=== PATIENT | female | born 1965 | race Caucasian/White ===

== ENCOUNTER → 2022-01-19 | Outpatient (REF) | payer OTHER ==
[2022-01-19 14:50] LABS: APPEARANCE, URINE MANUAL CLEAR (CLEAR); COLOR, URINE MANUAL YELLOW (YELLOW)
[2022-01-19 14:51] LABS: BILIRUBIN, URINE MANUAL NEGATIVE (NEGATIVE); BLOOD URINE MANUAL TRACE (NEGATIVE); GLUCOSE, URINE (UA) MANUAL 4+(1000 MG/DL) mg/dL (NEGATIVE); KETONE, URINE MANUAL NEGATIVE (NEGATIVE); LEUKOCYTE ESTERASE, URINE MAN TRACE (NEGATIVE); NITRITE, URINE MANUAL NEGATIVE (NEGATIVE); PROTEIN, URINE MANUAL 2+ mg/dL (NEGATIVE); SPECIFIC GRAVITY,URINE MANUAL 1.025 (1.002-1.035); UROBILINOGEN, URINE MANUAL NORMAL (NORMAL)
[2022-01-19 15:03] LABS: AMORPHOUS SEDIMENT, URINE SMALL AMOUNT (NEGATIVE); BACTERIA, URINE NONE SEEN; MUCUS, URINE LARGE AMOUNT (NEGATIVE); SQUAMOUS EPITHELIAL CELL URINE LARGE AMOUNT /hpf (SMALL AMT)
== END ==
LOC: M SMT 13:20
PROVIDERS: ATTEND Physician Assistant
DX: R30.0 Dysuria (principal)

== ENCOUNTER → 2022-03-08 | Outpatient (CLI) | payer OTHER | LOC: M RAD 09:01 | PROVIDERS: ATTEND Internal Medicine Nephrology | DX: E11.22 Type 2 diabetes mellitus with diabetic chronic kidney disease (principal); N18.2 Chronic kidney disease, stage 2 (mild) ==

== ENCOUNTER → 2022-03-12 | Outpatient (REF) | payer OTHER ==
[2022-03-12 18:18] LABS: CREATININE, URINE 100.4 MG/DL; MAU/CREAT RATIO 100.5 MCG/MG (0.0-30.0)
== END ==
LOC: M LAB REF 17:16
PROVIDERS: ATTEND Internal Medicine Nephrology
DX: N25.81 Secondary hyperparathyroidism of renal origin (principal)

== ENCOUNTER → 2022-09-08 | Outpatient (REF) | payer OTHER ==
[2022-09-08 18:41] LABS: TOTAL PROTEIN,RANDOM URINE 56.5 MG/DL (0.0-14.0)
[2022-09-08 18:46] LABS: CREATININE,RANDOM URINE 108.4 MG/DL
== END ==
LOC: M LAB REF 17:05
PROVIDERS: ATTEND Internal Medicine Nephrology
DX: E11.22 Type 2 diabetes mellitus with diabetic chronic kidney disease (principal)

== ENCOUNTER → 2022-11-09 | Outpatient (REF) | payer OTHER ==
[2022-11-09 17:17] LABS: ALBUMIN 3.3 G/DL (3.2-5.2); BILIRUBIN,DIRECT 0.2 MG/DL (<0.4); BILIRUBIN,TOTAL 0.6 MG/DL (0.3-1.2); CALCIUM LEVEL 9.6 MG/DL (8.5-10.1); CREATININE FOR GFR 1.25 MG/DL (0.55-1.30); GLOMERULAR FILTRATION RATE 47.4 (>51); POTASSIUM SERUM 4.4 MMOL/L (3.5-5.1); TOTAL PROTEIN 7.2 G/DL (5.7-8.2)
== END ==
LOC: M SFHCRHEU 14:50
PROVIDERS: ATTEND Internal Medicine
DX: R79.82 Elevated C-reactive protein (CRP) (principal); R70.0 Elevated erythrocyte sedimentation rate; E79.0 Hyperuricemia without signs of inflammatory arthritis and tophaceous disease; M25.50 Pain in unspecified joint

== ENCOUNTER → 2023-08-22 | Outpatient (CLI) | payer OTHER | LOC: M SLEEP 20:00 | PROVIDERS: ATTEND Nurse Practitioner Adult Health | DX: G47.33 Obstructive sleep apnea (adult) (pediatric) (principal) ==

== ENCOUNTER → 2024-03-01 | Outpatient (REF) | payer OTHER ==
[2024-03-01 18:05] LABS: CREATININE,RANDOM URINE 34.5 MG/DL
[2024-03-01 18:14] LABS: TOTAL PROTEIN,RANDOM URINE 160.1 MG/DL (0.0-14.0)
== END ==
LOC: M LAB REF 17:05
PROVIDERS: ATTEND Internal Medicine Nephrology
DX: E11.22 Type 2 diabetes mellitus with diabetic chronic kidney disease (principal)

== ENCOUNTER → 2024-03-27 | Outpatient (CLI) | payer OTHER | LOC: M PLAIMG 10:36 | PROVIDERS: ATTEND Internal Medicine Nephrology | DX: R31.1 Benign essential microscopic hematuria (principal); N18.32 Chronic kidney disease, stage 3b ==

== ENCOUNTER → 2024-09-03 | Outpatient (REF) | payer OTHER ==
[2024-09-03 18:01] LABS: BACTERIA, URINE AUTO 3+ (NEGATIVE); MUCUS, URINE SMALL (NEGATIVE); RBC, URINE AUTO 5 /HPF (0-3); SQUAMOUS EPITHELIAL CELL UR AU 3 /HPF (0-6); WBC, URINE AUTO TNTC /HPF (0-3)
== END ==
LOC: M LAB REF 17:00
PROVIDERS: ATTEND Internal Medicine Nephrology
DX: N30.01 Acute cystitis with hematuria (principal)

== ENCOUNTER 2024-09-28 14:59 | Outpatient (CLI) | payer OTHER ==
[2024-09-28 15:25] VITALS: BP 138/90; O2SAT 96
[2024-09-28] MEDS: ERTAPENEM SODIUM 1 GM in NS MINI-BAG PLUS 50 ML IV ONE (15:36)
[2024-09-28 15:53] LABS: BASO # 0.1 10^3/uL (0.0-0.2); BASO % 0.5 % (0.0-1.0); EOS # 0.4 10^3/uL (0.0-0.5); EOS % 3.4 % (0.0-3.0); LYMPH # 2.5 10^3/uL (1.5-5.0); LYMPH % 21.6 % (24.0-44.0); MONO # 0.6 10^3/uL (0.0-0.8); MONO % 5.2 % (2.0-8.0); NEUTROPHILS # 8.0 10^3/uL (1.5-8.5); NEUTROPHILS % 69.0 % (36.0-66.0); PLATELET COUNT, AUTOMATED 211 10^3/uL (150-450)
[2024-09-28 16:26] LABS: ALT/SGPT 27.0 U/L (7.0-40); AST/SGOT 37.0 U/L (<34); C REACTIVE PROTEIN QUANTITATIV 0.83 MG/DL (<1.0); CALCIUM LEVEL 10.1 MG/DL (8.5-10.1); CARBON DIOXIDE LEVEL 32.0 MMOL/L (20-31); CHLORIDE LEVEL 101.0 MMOL/L (98-107); CREATININE FOR GFR 1.57 MG/DL (0.55-1.30); GLOMERULAR FILTRATION RATE 38.2 (>51); POTASSIUM SERUM 3.9 MMOL/L (3.5-5.1); SODIUM LEVEL 144.0 MMOL/L (136-145)
[2024-09-28 16:45] VITALS: BP 124/72; O2SAT 97
== END 2024-09-28 16:50 | disposition home or self-care (01) ==
LOC: M INFU 14:59
PROVIDERS: ATTEND Internal Medicine Infectious Disease
DX: A49.8 Other bacterial infections of unspecified site (principal); Z88.0 Allergy status to penicillin; Z88.1 Allergy status to other antibiotic agents; Z88.2 Allergy status to sulfonamides; Z88.8 Allergy status to other drugs, medicaments and biological substances
CPT/HCPCS: 36592; 80053; 85025; 86140; 96365; J1335

== ENCOUNTER 2024-09-29 11:07 | Outpatient (CLI) | payer OTHER ==
[~2024-09-29] VITALS: Ht 165.1 cm; Wt 90.9 kg
[2024-09-29 11:37] VITALS: BP 130/58; O2SAT 100
[2024-09-29] MEDS: ERTAPENEM SODIUM 1 GM in NS MINI-BAG PLUS 50 ML IV ONE (12:01)
== END 2024-09-29 13:03 | disposition home or self-care (01) ==
LOC: M OPCLI4PR 11:07 → M MS4PR 11:14 → M OPCLI4PR 13:03
PROVIDERS: ATTEND Internal Medicine Infectious Disease
DX: A49.8 Other bacterial infections of unspecified site (principal); Z88.0 Allergy status to penicillin; Z88.2 Allergy status to sulfonamides; Z88.1 Allergy status to other antibiotic agents; Z88.8 Allergy status to other drugs, medicaments and biological substances
CPT/HCPCS: 81001; 87086; 87507; 96365; J1335

== ENCOUNTER → 2024-09-29 | Outpatient (REF) | payer OTHER ==
[~2024-09-29] MED LIST: ASPI81CH33 PO; BRIM0.2S13 OP; CRES40TA PO; DORZ10DR10 OP; DULO1CAP6 PO; FINE10TA PO; FURO40TA2 PO; GING550C4 PO; LANTINJ4 SC; LEVOTAB10 PO; METO10TA2 PO; OMEP10CASR PO; TREL1AER PO; VENTAER INH; VITAMIN D PO
[2024-09-29 12:51] LABS: APPEARANCE, URINE HAZY (CLEAR); BACTERIA, URINE AUTO NEGATIVE (NEGATIVE); BILIRUBIN, URINE AUTO NEGATIVE (NEGATIVE); BLOOD, URINE BLOOD 2+ (NEGATIVE); GLUCOSE, URINE (UA) AUTO NEGATIVE (NEGATIVE); KETONE, URINE AUTO NEGATIVE (NEGATIVE); LEUKOCYTE ESTERASE, URINE AUTO 3+ (NEGATIVE); MUCUS, URINE SMALL (NEGATIVE); NITRITE, URINE AUTO NEGATIVE (NEGATIVE); PROTEIN, URINE AUTO 3+ mg/dL (NEGATIVE); RBC, URINE AUTO 18 /HPF (0-3); SPECIFIC GRAVITY URINE AUTO 1.011 (1.002-1.035); SQUAMOUS EPITHELIAL CELL UR AU 7 /HPF (0-6); UROBILINOGEN, URINE AUTO 0.2 mg/dL (0.0-2.0); WBC, URINE AUTO TNTC /HPF (0-3)
== END ==
LOC: M LAB REF 12:04
PROVIDERS: ATTEND Internal Medicine Infectious Disease
DX: R19.7 Diarrhea, unspecified (principal); N39.0 Urinary tract infection, site not specified

== ENCOUNTER → 2024-09-30 | Outpatient (CLI) | payer OTHER ==
[2024-09-30 09:29] VITALS: BP 131/79; TEMP 97.7; O2SAT 93
[2024-09-30] MEDS: ERTAPENEM SODIUM 1 GM in NS MINI-BAG PLUS 50 ML IV ONE (10:00)
== END ==
LOC: M OPCLI4PR 09:14
PROVIDERS: ATTEND Internal Medicine Infectious Disease
DX: A49.8 Other bacterial infections of unspecified site (principal); Z88.0 Allergy status to penicillin; Z88.2 Allergy status to sulfonamides; Z88.1 Allergy status to other antibiotic agents; Z88.8 Allergy status to other drugs, medicaments and biological substances
CPT/HCPCS: 96365; J1335

== ENCOUNTER 2024-10-01 14:29 | Outpatient (CLI) | payer OTHER ==
[~2024-10-01] VITALS: Ht 165.1 cm; Wt 90.9 kg
[2024-10-01 15:15] VITALS: BP 141/86; O2SAT 97
[2024-10-01] MEDS: ERTAPENEM SODIUM 1 GM in NS MINI-BAG PLUS 50 ML IV SCH (15:23)
[2024-10-01 15:55] VITALS: BP 129/80; O2SAT 100
[2024-10-01] MEDS ORDERED: FURO40TA2 PO (16:19)
[2024-10-01] MEDS ORDERED: LANTINJ4 SC (16:19)
[2024-10-01] MEDS ORDERED: METO10TA2 PO (16:28)
[2024-10-01] MEDS ORDERED: TREL1AER PO (16:28)
[2024-10-01] MEDS ORDERED: DORZ10DR10 OP (16:28)
[2024-10-01] MEDS ORDERED: GING550C4 PO (16:28)
[2024-10-01] MEDS ORDERED: LEVOTAB10 PO (16:28)
[2024-10-01] MEDS ORDERED: DULO1CAP6 PO (16:28)
[2024-10-01] MEDS ORDERED: BRIM0.2S13 OP (16:28)
[2024-10-01] MEDS ORDERED: VENTAER INH (16:28)
[2024-10-01] MEDS ORDERED: FINE10TA PO (16:28)
[2024-10-01] MEDS ORDERED: CRES40TA PO (16:28)
[2024-10-01] MEDS ORDERED: OMEP10CASR PO (16:28)
[2024-10-01] MEDS ORDERED: ASPI81CH33 PO (16:28)
[2024-10-01] MEDS ORDERED: VITAMIN D PO (16:30)
== END 2024-10-01 16:00 | disposition home or self-care (01) ==
LOC: M INFU 14:29
PROVIDERS: ATTEND Internal Medicine Infectious Disease
DX: A49.8 Other bacterial infections of unspecified site (principal); Z88.0 Allergy status to penicillin; Z88.1 Allergy status to other antibiotic agents; Z88.2 Allergy status to sulfonamides; Z91.012 Allergy to eggs
CPT/HCPCS: 96365; J1335

== ENCOUNTER 2024-10-02 15:21 | Outpatient (CLI) | payer OTHER ==
[~2024-10-02] VITALS: Ht 165.1 cm; Wt 100.0 kg
[2024-10-02] MEDS: ERTAPENEM SODIUM 1 GM in NS MINI-BAG PLUS 50 ML IV ONE (15:51)
[2024-10-02 16:23] VITALS: BP 127/74; O2SAT 96
== END 2024-10-02 16:30 ==
LOC: M INFU 15:21
PROVIDERS: ATTEND Internal Medicine Infectious Disease
DX: A49.8 Other bacterial infections of unspecified site (principal); Z88.0 Allergy status to penicillin; Z88.1 Allergy status to other antibiotic agents; Z88.2 Allergy status to sulfonamides; Z91.012 Allergy to eggs
CPT/HCPCS: 96365; J1335

== ENCOUNTER 2024-10-03 15:50 | Outpatient (CLI) | payer OTHER ==
[~2024-10-03] VITALS: Ht 165.1 cm; Wt 90.9 kg
[2024-10-03 15:55] VITALS: BP 109/73; O2SAT 95
[2024-10-03] MEDS: ERTAPENEM SODIUM 1 GM in NS MINI-BAG PLUS 50 ML IV ONE (16:00)
[2024-10-03 16:42] VITALS: BP 111/65; O2SAT 98
== END 2024-10-03 16:40 ==
LOC: M INFU 15:50
PROVIDERS: ATTEND Internal Medicine Infectious Disease
DX: A49.8 Other bacterial infections of unspecified site (principal); Z88.0 Allergy status to penicillin; Z88.1 Allergy status to other antibiotic agents; Z88.2 Allergy status to sulfonamides; Z88.8 Allergy status to other drugs, medicaments and biological substances; Z91.012 Allergy to eggs
CPT/HCPCS: 96365; J1335

== ENCOUNTER → 2024-11-15 | Outpatient (CLI) | payer OTHER ==
[~2024-11-15] MED LIST changes: +ISOVUE-370 76% 100 ML VIAL As Ordered ONE
== END ==
LOC: M RAD 15:38
PROVIDERS: ATTEND Internal Medicine Infectious Disease
DX: N39.0 Urinary tract infection, site not specified (principal); R10.11 Right upper quadrant pain
CPT/HCPCS: 74178; Q9967